=== PATIENT | male | born 1985 | race African-American/Black ===

== ENCOUNTER 2018-10-13 22:45 | Emergency (ER) | payer BC, OTHER ==
[2018-10-13 22:51] VITALS: BP 130/64
[2018-10-13] MEDS ORDERED: MORPHINE SULFATE 2 MG/ML SYRINGE IVP STA (23:11)
[2018-10-13] MEDS ORDERED: ASPIRIN 81 MG PO STA (23:11)
[2018-10-13 23:36] LABS: Basophils % (A) 0 %; Eosinophils # (A) 0.2 k/uL (0-0.7); Eosinophils % (A) 3 %; HCT 44.8 % (39.0-53.0); HGB 14.3 gm/dL (13.0-17.5); Lymphocytes # (A) 2.5 k/uL (1.0-4.8); Lymphocytes % (A) 34 %; MCH 27.4 pg (25.0-35.0); MCHC 31.9 g/dL (31.0-37.0); Mean Platelet Volume 8.1; Monocytes # (A) 0.4 k/uL (0-1.0); Monocytes % (A) 6 %; Neutrophils # (A) 4.1 k/uL (1.3-7.7); Neutrophils % (A) 55 %; Platelet Count 179 k/uL (150-450); RBC 5.21 m/uL (4.30-5.90); RDW 13.9 % (11.5-15.5); WBC 7.4 k/uL (3.8-10.6)
[2018-10-13 23:40] LABS: African American GFR (CKD) >90 (>60 ml/min/1.73 sqM); Albumin 4.4 g/dL (3.5-5.0); Anion Gap 8 mmol/L; Calcium 9.6 mg/dL (8.4-10.2); Carbon Dioxide 26 mmol/L (22-30); Chloride 105 mmol/L (98-107); Glucose 104 mg/dL (74-99); Non-African American GFR(CKD) >90 (>60 ml/min/1.73 sqM); Sodium 139 mmol/L (137-145); Total Bilirubin 0.5 mg/dL (0.2-1.3)
--- NOTE | 2018-10-13 23:41 | XR ---
History: ITS.REASON XR Reason: Chest Pain Exam: XR CXR 2 VIEWS Comparison: None available FINDINGS: The lungs are clear. The cardiac and mediastinal contours appear within limits. The visualized osseous structures appear within limits. IMPRESSION: No evidence of acute disease.
[2018-10-13 23:42] LABS: ALT 47 U/L (21-72); AST 35 U/L (17-59); Alkaline Phosphatase 87 U/L (38-126); Blood Urea Nitrogen 13 mg/dL (9-20)
[2018-10-13 23:51] LABS: D-Dimer 0.18 mg/L FEU (<0.60); INR 0.9 (<1.2); Partial Thromboplastin Time 25.2 sec (22.0-30.0); Prothrombin Time 9.7 sec (9.0-12.0)
[2018-10-14] MEDS ORDERED: SIMETHICONE 80 MG CHEWABLE PO STA (01:50)
--- NOTE | 2018-10-14 01:55 | ED ---
Chest Pain HPI - General Chief Complaint: Chest Pain Stated Complaint: Chest Pain Time Seen by Provider: 10/13/18 22:58 Source: patient Mode of arrival: ambulatory Limitations: no limitations - History of Present Illness Initial Comments: Patient is a 33-year-old male who presents to the emergency room with reported chest pain. He reports that symptoms started earlier today. He denies any provoking factors. Describes it as a left-sided chest pain with radiation to his left flank. It is reproducible upon palpation and with movement. States that he does have pain with inspiration. Denies any blunt trauma. No history of similar in the past. He denies a history of DVTs or PEs. No family history of blood clotting disorders. Denies any unilateral calf pain or swelling. No recent travel or prolonged immobility. He denies associated nausea, vomiting or diaphoresis. Does admit to slight abdominal distention. He did not take any medications at home for her symptoms. He denies a family history of cardiac disease. There is no associated symptoms of headache, neck pain, back pain. No tearing sensation to his back. He denies any unilateral numbness or weakness. There are no alleviating, precipitating or modifying factors - Related Data Home Medications Medication Instructions Recorded Confirmed No Known Home Medications 10/13/18 10/13/18 Allergies Allergy/AdvReac Type Severity Reaction Status Date / Time No Known Allergies Allergy Verified 10/13/18 23:30 Review of Systems ROS Statement: Those systems with pertinent positive or pertinent negative responses have been documented in the HPI. ROS Other: All systems not noted in ROS Statement are negative. EKG Findings - EKG Comments: EKG Findings:: EKG demonstrates a normal sinus rhythm with a ventricular rate of 105. FL interval 162. QRS 86. QTC of 420. There are no acute ST segment elevations or depressions concerning for ischemic changes Past Medical History Past Medical History: No Reported History History of Any Multi-Drug Resistant Organisms: None Reported Past Surgical History: No Surgical Hx Reported Past Anesthesia/Blood Transfusion Reactions: No Reported Reaction Past Psychological History: No Psychological Hx Reported Smoking Status: Never smoker Past Alcohol Use History: None Reported Past Drug Use History: None Reported General Exam Limitations: no limitations General appearance: alert, in no apparent distress Head exam: Present: atraumatic, normocephalic, normal inspection Eye exam: Present: normal appearance, PERRL, EOMI. Absent: scleral icterus, conjunctival injection, periorbital swelling ENT exam: Present: normal exam, mucous membranes moist Neck exam: Present: normal inspection. Absent: tenderness, meningismus, lymphadenopathy Respiratory exam: Present: normal lung sounds bilaterally. Absent: respiratory distress, wheezes, rales, rhonchi, stridor Cardiovascular Exam: Present: regular rate, normal rhythm, normal heart sounds. Absent: systolic murmur, diastolic murmur, rubs, gallop, clicks GI/Abdominal exam: Present: soft, normal bowel sounds. Absent: distended, tenderness, guarding, rebound, rigid Extremities exam: Present: normal inspection, full ROM, normal capillary refill. Absent: tenderness, pedal edema, joint swelling, calf tenderness Back exam: Present: normal inspection Neurological exam: Present: alert, oriented X3, CN II-XII intact Psychiatric exam: Present: normal affect, normal mood Skin exam: Present: warm, dry, intact, normal color. Absent: rash Course Vital Signs 10/13/18 10/14/18 22:47 02:10 Temperature 98.1 F 98.6 F Pulse Rate 76 75 Respiratory 18 17 Rate Blood Pressure 130/64 O2 Sat by Pulse 100 Oximetry Chest Pain MDM - MDM Upon arrival the patient was placed into room 2. He is hooked up to continuous pulse ox and cardiac monitoring. A 12-lead EKG was performed and is deomstrates a normal sinus rhythm. IV access had been established. We did provide the patient with 4 mgs of morphine and 324 mgs of chewable aspirin. I did recommend laboratory studies and a chest x-ray. Upon return of the results they are discussed with the patient. The patient does admit to feeling improved at this time. I did discuss the tx options. The patient was given 40 mg of simethicone PO. Did recommend performing a second troponin the patient for which the did agree. The results are then discussed with the patient. At this time the patient will be discharged home and is to follow-up with his primary care physician within 1-2 days. I did recommend that he have a full cardiac evaluation to include Holter monitoring and echo. If the patient has any worsening symptoms he should return to the ED. The patient was in agreement with the treatment plan. patient was discharged home in stable condition Disposition Clinical Impression: Acute chest pain Disposition: HOME SELF-CARE Condition: Stable Instructions (If sedation given, give patient instructions): Chest Pain (ED) Additional Instructions: Please follow-up with your primary care doctor in 1-2 days. Return to the emergency department for any new or worsening symptoms Is patient prescribed a controlled substance at d/c from ED?: No Referrals: None,Stated [Primary Care Provider] - 1-2 days Time of Disposition: 01:57
[2018-10-14 05:49] VITALS: PULSE 75; RESP 17; TEMP 98.6
== END 2018-10-14 02:11 | disposition home or self-care (01) ==
LOC: EC 22:45
DX: R07.1 Chest pain on breathing (principal)
CPT/HCPCS: 96374; 36415 ×2; 93005; 85379; 83880; 80053; 84484 ×2; 85025; 85610; 85730; 71046; 99284; J2270

== ENCOUNTER 2020-03-08 16:33 | Observation (INO) | payer OTHER ==
[2020-03-08] MEDS ORDERED: SODIUM CHLORIDE 0.9% 1,000 ML IV STA ×2 (17:00)
[2020-03-08] MEDS ORDERED: KETOROLAC 15 MG/ML 1 ML VIAL IVP STA (17:21)
[2020-03-08 17:26] LABS: Basophils # (A) 0.1 k/uL (0-0.2); Basophils % (A) 1 %; Eosinophils # (A) 0.3 k/uL (0-0.7); Eosinophils % (A) 4 %; HCT 43.5 % (39.0-53.0); HGB 15.1 gm/dL (13.0-17.5); Lymphocytes # (A) 2.2 k/uL (1.0-4.8); Lymphocytes % (A) 25 %; MCH 29.3 pg (25.0-35.0); MCHC 34.6 g/dL (31.0-37.0); MCV 84.7 fL (80.0-100.0); Mean Platelet Volume 8.5; Monocytes # (A) 0.4 k/uL (0-1.0); Monocytes % (A) 5 %; Neutrophils # (A) 5.5 k/uL (1.3-7.7); Neutrophils % (A) 64 %; Platelet Count 188 k/uL (150-450); RBC 5.14 m/uL (4.30-5.90); RDW 13.3 % (11.5-15.5); WBC 8.6 k/uL (3.8-10.6)
[2020-03-08 17:34] LABS: Appearance,Urine Clear (Clear); Bilirubin,Urine Negative (Negative); Blood,Urine Negative (Negative); Color,Urine Colorless; Glucose,Urine (UA) Negative (Negative); Ketones,Urine Negative (Negative); Leukocyte Esterase,Urine Negative (Negative); Nitrite,Urine Negative (Negative); PH, Urine 5.5 (5.0-8.0); Protein,Urine Negative (Negative); Specific Gravity,Urine 1.004 (1.001-1.035); Urobilinogen,Urine <2.0 mg/dL (<2.0)
[2020-03-08 17:35] LABS: ALT 67 U/L (4-49); AST 34 U/L (17-59); African American GFR (CKD) >90 (>60 ml/min/1.73 sqM); Albumin 4.6 g/dL (3.5-5.0); Alkaline Phosphatase 107 U/L (38-126); Amylase 60 U/L (30-110); Anion Gap 6 mmol/L; Blood Urea Nitrogen 13 mg/dL (9-20); Calcium 9.7 mg/dL (8.4-10.2); Carbon Dioxide 28 mmol/L (22-30); Chloride 102 mmol/L (98-107); Glucose 91 mg/dL (74-99); Lipase 63 U/L (23-300); Non-African American GFR(CKD) >90 (>60 ml/min/1.73 sqM); Potassium 4.3 mmol/L (3.5-5.1); Sodium 136 mmol/L (137-145); Total Bilirubin 0.6 mg/dL (0.2-1.3); Total Protein 8.7 g/dL (6.3-8.2)
--- NOTE | 2020-03-08 17:44 | XR ---
EXAMINATION TYPE: XR KUB DATE OF EXAM: 03/08/2020 5:40 PM CLINICAL HISTORY: Left-sided abdominal pain. TECHNIQUE: Two Upright KUB images of the abdomen are obtained. COMPARISON: None. FINDINGS: Scattered gas is seen in non-distended stomach bubble and small bowel loops. Few scattered air-fluid levels in left mid small bowel loops. Gas and fecal material is seen in non-distended colon along the periphery. There is no visceromegaly, pneumoperitoneum, or abnormal calcification apprecia shelly. The lung bases are clear and the osseous structures are intact. IMPRESSION: Overall nonspecific but favor nonobstructive bowel gas pattern.
--- NOTE | 2020-03-08 18:29 | ED ---
Abdominal Pain HPI - General Chief Complaint: Abdominal Pain Stated Complaint: ABD pain Time Seen by Provider: 03/08/20 16:56 Source: patient, RN notes reviewed, old records reviewed Mode of arrival: ambulatory Limitations: no limitations - History of Present Illness Initial Comments: 4-year-old male presents the ER today for bilateral lower abdominal pain and cramping and bloating, with symptoms for the past 6 days. See normal bowel movement yesterday. Denies hematochezia or melena. Denies any vomiting. It is his abdomen feels full and has some left and right lower quadrant tenderness. She denies any fevers. Denies change in urination. - Related Data Home Medications Medication Instructions Recorded Confirmed No Known Home Medications 10/13/18 10/13/18 Allergies Allergy/AdvReac Type Severity Reaction Status Date / Time No Known Allergies Allergy Verified 03/08/20 16:46 Review of Systems ROS Statement: Those systems with pertinent positive or pertinent negative responses have been documented in the HPI. ROS Other: All systems not noted in ROS Statement are negative. Past Medical History Past Medical History: No Reported History History of Any Multi-Drug Resistant Organisms: None Reported Past Surgical History: No Surgical Hx Reported Past Anesthesia/Blood Transfusion Reactions: No Reported Reaction Past Psychological History: No Psychological Hx Reported Smoking Status: Never smoker Past Alcohol Use History: None Reported Past Drug Use History: None Reported General Exam - General Exam Comments Initial Comments: 34-year-old female. No distress. Limitations: no limitations General appearance: alert, in no apparent distress Head exam: Present: atraumatic, normocephalic, normal inspection Eye exam: Present: normal appearance, PERRL, EOMI. Absent: scleral icterus, conjunctival injection, periorbital swelling ENT exam: Present: normal exam, mucous membranes moist Neck exam: Present: normal inspection. Absent: tenderness, meningismus, lymph adenopathy Respiratory exam: Present: normal lung sounds bilaterally. Absent: respiratory distress, wheezes, rales, rhonchi, stridor Cardiovascular Exam: Present: regular rate, normal rhythm, normal heart sounds. Absent: systolic murmur, diastolic murmur, rubs, gallop, clicks GI/Abdominal exam: Present: soft, tenderness (Left lower quadrant tenderness), normal bowel sounds. Absent: distended, guarding, rebound, rigid Extremities exam: Present: normal inspection, full ROM, normal capillary refill. Absent: tenderness, pedal edema, joint swelling, calf tenderness Back exam: Present: normal inspection Neurological exam: Present: alert, oriented X3, CN II-XII intact Psychiatric exam: Present: normal affect, normal mood Skin exam: Present: warm, dry, intact, normal color. Absent: rash Course Vital Signs 03/08/20 03/08/20 16:42 18:58 Temperature 98.6 F 98.8 F Pulse Rate 88 86 Respiratory 16 18 Rate Blood Pressure 130/81 121/73 O2 Sat by Pulse 99 99 Oximetry Medical Decision Making - Medical Decision Making 34-year-old male generally healthy presents with 6 days of lower abdominal pain and cramping and bloating. Patient reports he's had no recorded fevers. Labs are reviewed and white blood cell count of 8.6. On evaluation have significant left lower quadrant and midabdominal tenderness. Patient had a CAT scan reviewed which showed evidence of moderate to severe appendicitis with dilation of 21 mm. Patient was informed of these findings. I did start the Patient on IV antibiotics and discussed the case with been seen yet. He will be admitted at this time for IV antibiotics for possible surgery in the morning. Patient mother clear liquid diet until midnight and after that remaining nothing by mouth. - Lab Data Result diagrams: 03/08/20 17:18 03/08/20 17:18 Lab Results 03/08/20 03/08/20 03/08/20 Range/Units 17:18 17:18 17:18 WBC 8.6 (3.8-10.6) k/uL RBC 5.14 (4.30-5.90) m/uL Hgb 15.1 (13.0-17.5) gm/dL Hct 43.5 (39.0-53.0) % MCV 84.7 (80.0-100.0) fL MCH 29.3 (25.0-35.0) pg MCHC 34.6 (31.0-37.0) g/dL RDW 13.3 (11.5-15.5) % Plt Count 188 (150-450) k/uL MPV 8.5 Neutrophils % 64 % Lymphocytes % 25 % Monocytes % 5 % Eosinophils % 4 % Basophils % 1 % Neutrophils # 5.5 (1.3-7.7) k/uL Lymphocytes # 2.2 (1.0-4.8) k/uL Monocytes # 0.4 (0-1.0) k/uL Eosinophils # 0.3 (0-0.7) k/uL Basophils # 0.1 (0-0.2) k/uL Sodium 136 L (137-145) mmol/L Potassium 4.3 (3.5-5.1) mmol/L Chloride 102 (98-107) mmol/L Carbon Dioxide 28 (22-30) mmol/L Anion Gap 6 mmol/L BUN 13 (9-20) mg/dL Creatinine 0.96 (0.66-1.25) mg/dL Est GFR (CKD-EPI)AfAm >90 (>60 ml/min/1.73 sqM) Est GFR (CKD-EPI)NonAf >90 (>60 ml/min/1.73 sqM) Glucose 91 (74-99) mg/dL Calcium 9.7 (8.4-10.2) mg/dL Total Bilirubin 0.6 (0.2-1.3) mg/dL AST 34 (17-59) U/L ALT 67 H (4-49) U/L Alkaline Phosphatase 107 (38-126) U/L Total Protein 8.7 H (6.3-8.2) g/dL Albumin 4.6 (3.5-5.0) g/dL Amylase 60 (30-110) U/L Lipase 63 (23-300) U/L Urine Color Colorless Urine Appearance Clear (Clear) Urine pH 5.5 (5.0-8.0) Ur Specific [place] 1.004 (1.001-1.035) Urine Protein Negative (Negative) Urine Glucose (UA) Negative (Negative) Urine Ketones Negative (Negative) Urine Blood Negative (Negative) Urine Nitrite Negative (Negative) Urine Bilirubin Negative (Negative) Urine Urobilinogen <2.0 (<2.0) mg/dL Ur Leukocyte Esterase Negative (Negative) - Radiology Data Radiology results: report reviewed Overall nonspecific fever not start a bowel gas pattern. CT findings are consistent with fairly severe uncomplicated acute appendicitis. The appendix is abnormal setting inferiorly from the cecum. Styloid and more to the tip at 21 mm with abnormal mucosal enhancement severe wall thickening. Moderate to severe ill-defined fluid and fat straining. Appendix is more midline in the presacral region that axial image 62. No free air. This is read by Dr. Shah. Disposition Clinical Impression: Appendicitis Disposition: ADMITTED IP TO THIS HOSP Condition: Good Additional Instructions: Please use medication as discussed. Please follow up with family doctor if symptoms have not improved over the next two days. Please return to the emergency room if your symptoms increase or worsen or for any other concerns. Is patient prescribed a controlled substance at d/c from ED?: No Referrals: Louise Noriega, PAC [Primary Care Provider] - 1-2 days Time of Disposition: 19:51
--- NOTE | 2020-03-08 19:29 | CT ---
EXAMINATION TYPE: CT abdomen pelvis w con DATE OF EXAM: 03/08/2020 COMPARISON: None. Abdominal x-ray earlier today HISTORY: Generalized abdominal pain x6 days. CT DLP: 901.8 mGycm, Automated Exposure Control for Dose Reduction was Utilized. CONTRAST: CT scan of the abdomen and pelvis is performed without oral but with IV Contrast, patient injected wi th 100ml mL of Isovue 300. FINDINGS: LUNG BASES: No significant abnormality is appreciated. LIVER/GB: No significant abnormality is appreciated. PANCREAS: No significant abnormality is seen. SPLEEN: No significant abnormality is seen. ADRENALS: No significant abnormality is seen. KIDNEYS: Symmetric cortical medullary uptake and excretion without concerning renal mass or hydroneph rosis seen bilaterally. BOWEL: Suboptimal evaluation without enteric contrast. No suspicious small or large bowel dilatation is present. There is fecal prominent terminal ileum. Findings consistent with delayed passage of flori sted material 2 colonic level. Appendix is abnormal extending inferiorly from the cecum. It is dilate d more towards the tip at 21 mm coronal image 43 with abnormal mucosal enhancement and severe wall th ickening. There is moderate to severe ill-defined fluid and fat stranding. Appendix is more midline i n the presacral region axial image 62. No free air. PROSTATE/SEMINAL VESICLES: Prostate gland slightly prominent for patient's age measures upper limits of normal in size. LYMPH NODES: No greater than 1cm abdominal or pelvic lymph nodes are appreciated. OSSEOUS STRUCTURES: No significant abnormality is seen. OTHER: No significant additional abnormality is seen. IMPRESSION: CT findings consistent with a fairly severe but uncomplicated acute appendicitis as detai led above. Critical results communicated to ordering emergency care physician benefits assistant via telephone at time of dictation.
[2020-03-08] MEDS ORDERED: MORPHINE SULFATE 4 MG/ML SYRINGE IVP PRN (19:38)
[2020-03-08] MEDS ORDERED: IBUPROFEN 400 MG TAB PO PRN (19:52)
[2020-03-08] MEDS ORDERED: ACETAMINOPHEN TAB 325 MG TAB PO PRN (19:52)
[2020-03-08] MEDS ORDERED: LORazepam 2 MG/ML INJ IV PRN (19:52)
[2020-03-08] MEDS ORDERED: MORPHINE SULFATE 4 MG/ML SYRINGE IV PRN (19:52)
[2020-03-08] MEDS ORDERED: NALOXONE 0.4 MG/ML 1 ML VIAL IV PRN (19:52)
[2020-03-08] MEDS ORDERED: PIPERACILLIN-TAZOBACTAM 3.375 GM in SODIUM CHLORIDE 0.9% 100 ML IVPB STA (19:55)
[2020-03-08] MEDS: SODIUM CHLORIDE 0.9% 1,000 ML IV SCH (23:56)
[2020-03-09] MEDS: KETOROLAC 15 MG/ML 1 ML VIAL IVP PRN ×3 (01:45→17:03)
[2020-03-09] MEDS: PIPERACILLIN-TAZOBACTAM 3.375 GM in SODIUM CHLORIDE 0.9% 100 ML IVPB SCH ×3 (05:15→19:22)
[2020-03-09] MEDS: SODIUM CHLORIDE 0.9% 1,000 ML IV SCH ×2 (05:20→16:26)
[2020-03-09 07:18] LABS: Glucose,Whole Blood 98 mg/dL (75-99)
[2020-03-09] MEDS: PANTOPRAZOLE 40 MG/10 ML VIAL IV SCH (08:28)
[2020-03-09 08:54] LABS: Basophils % (A) 0 %; Eosinophils # (A) 0.2 k/uL (0-0.7); Eosinophils % (A) 3 %; HGB 15.1 gm/dL (13.0-17.5); Lymphocytes # (A) 1.4 k/uL (1.0-4.8); Lymphocytes % (A) 22 %; MCH 28.7 pg (25.0-35.0); MCHC 33.4 g/dL (31.0-37.0); MCV 85.8 fL (80.0-100.0); Mean Platelet Volume 8.3; Monocytes # (A) 0.4 k/uL (0-1.0); Monocytes % (A) 5 %; Neutrophils # (A) 4.4 k/uL (1.3-7.7); Neutrophils % (A) 67 %; Platelet Count 204 k/uL (150-450); RBC 5.25 m/uL (4.30-5.90); RDW 13.5 % (11.5-15.5); WBC 6.5 k/uL (3.8-10.6)
[2020-03-09 09:04] LABS: ALT 58 U/L (4-49); AST 31 U/L (17-59); African American GFR (CKD) >90 (>60 ml/min/1.73 sqM); Albumin 4.2 g/dL (3.5-5.0); Albumin/Globulin Ratio 1.1; Alkaline Phosphatase 95 U/L (38-126); Anion Gap 6 mmol/L; Blood Urea Nitrogen 11 mg/dL (9-20); Calcium 9.3 mg/dL (8.4-10.2); Carbon Dioxide 28 mmol/L (22-30); Chloride 104 mmol/L (98-107); Globulin 3.9 g/dL; Glucose 101 mg/dL (74-99); Non-African American GFR(CKD) >90 (>60 ml/min/1.73 sqM); Potassium 4.4 mmol/L (3.5-5.1); Sodium 138 mmol/L (137-145); Total Bilirubin 1.2 mg/dL (0.2-1.3); Total Protein 8.1 g/dL (6.3-8.2)
--- NOTE | 2020-03-09 09:51 | P.GSHP ---
History of Present Illness H&P Date: 03/09/20 CHIEF COMPLAINT: Abdominal pain HISTORY OF PRESENT ILLNESS: This is a 34-year-old male with no snacking past medical history. He presents to the emergency room with complaints of abdominal pain in the lower mid to left lower quadrant abdomen for the past 6 days. Patient reports that symptoms initially started as bloating and stomach cramping. He's had decrease in appetite. He denies any fever chills or sweats. Denies any nausea or vomiting. He's afebrile. His computed tomography scan of the abdomen and pelvis consistent with fairly severe but uncomplicated acute appendicitis. Appendix is abnormal extending inferiorly from the cecum. It is dilated more towards the tip with abnormal mucosal enhancement and severe wall thickening. There is moderate to severe ill-defined fluid and fat stranding. The patent thinks is more midline in the presacral region. PAST MEDICAL HISTORY: See list. PAST SURGICAL HISTORY: See list. MEDICATIONS: See list. ALLERGIES: See list. SOCIAL HISTORY: No illicit drug use. REVIEW OF SYSTEMS: CONSTITUTIONAL: Denies fever or chills. HEENT: Denies blurred vision, vision changes, or eye pain. Denies hemoptysis CARDIOVASCULAR: Denies chest pain or pressure. RESPIRATORY: No shortness of breath. GASTROINTESTINAL: See HPI for pertinent findings HEMATOLOGIC: Denies bleeding disorders. GENITOURINARY: Denies any blood in urine or increased urinary frequency. SKIN: Denies pruitis. Denies rash. PHYSICAL EXAM: VITAL SIGNS: Reviewed GENERAL: Well-developed in no acute distress. HEENT: No sclera icterus. Extraocular movements grossly intact. Moist buccal mucosa. Head is atraumatic, normocephalic. No nasal drainage. ABDOMEN: Soft. Nondistended. Tender with palpation of the lower mid and left quadrant lower quadrant of abdomen NEUROLOGIC: Alert and oriented. Cranial nerves II through XII grossly intact. LABORATORY DATA: WBC 8.6 ALT 58 lipase 63 COVID negative UA negative IMAGING: computed tomography scan of the abdomen and pelvis consistent with fairly severe but uncomplicated acute appendicitis. Appendix is abnormal extending inferiorly from the cecum. It is dilated more towards the tip with abnormal mucosal enhancement and severe wall thickening. There is moderate to severe ill-defined fluid and fat stranding. The patent thinks is more midline in the presacral region. ASSESSMENT: 1. Acute appendicitis PLAN: -Patient is scheduled for laparoscopic appendectomy today with Dr. Hare -Keep patient nothing by mouth -Continue with IV fluids -Continue IV antibiotics Physician Merchant Seaman note has been reviewed by physician. Signing provider agrees with the documented findings, assessment, and plan of care. Past Medical History Past Medical History: No Reported History History of Any Multi-Drug Resistant Organisms: None Reported Past Surgical History: No Surgical Hx Reported Past Anesthesia/Blood Transfusion Reactions: No Reported Reaction Past Psychological History: No Psychological Hx Reported Smoking Status: Never smoker Past Alcohol Use History: None Reported Past Drug Use History: None Reported Medications and Allergies Home Medications Medication Instructions Recorded Confirmed Type L.acidoph,Paracasei, B.lactis 1 tab PO DAILY 03/08/20 03/08/20 History [Probiotic] Multivitamins, Thera [Multivitamin 1 tab PO DAILY 03/08/20 03/08/20 History (formulary)] Potassium Gluconate 99 mg PO DAILY 03/08/20 03/08/20 History Simethicone [Gas-X] 125 mcg PO DAILY PRN 03/08/20 03/08/20 History Allergies Allergy/AdvReac Type Severity Reaction Status Date / Time No Known Allergies Allergy Verified 03/08/20 21:11 Surgical - Exam Vital Signs Temp Pulse Resp BP Pulse Ox 98.6 F 88 16 130/81 99 03/08/20 16:42 03/08/20 16:42 03/08/20 16:42 03/08/20 16:42 03/08/20 16:42 Results - Labs 03/09/20 08:32 03/09/20 08:32 Abnormal Lab Results - Last 24 Hours (Table) 03/08/20 03/09/20 Range/Units 17:18 08:32 Sodium 136 L (137-145) mmol/L Glucose 101 H (74-99) mg/dL ALT 67 H 58 H (4-49) U/L Total Protein 8.7 H (6.3-8.2) g/dL Diabetes panel 03/08/20 03/09/20 Range/Units 17:18 08:32 Sodium 136 L 138 (137-145) mmol/L Potassium 4.3 4.4 (3.5-5.1) mmol/L Chloride 102 104 (98-107) mmol/L Carbon Dioxide 28 28 (22-30) mmol/L BUN 13 11 (9-20) mg/dL Creatinine 0.96 1.04 (0.66-1.25) mg/dL Glucose 91 101 H (74-99) mg/dL Calcium 9.7 9.3 (8.4-10.2) mg/dL AST 34 31 (17-59) U/L ALT 67 H 58 H (4-49) U/L Alkaline Phosphatase 107 95 (38-126) U/L Total Protein 8.7 H 8.1 (6.3-8.2) g/dL Albumin 4.6 4.2 (3.5-5.0) g/dL Calcium panel 03/08/20 03/09/20 Range/Units 17:18 08:32 Calcium 9.7 9.3 (8.4-10.2) mg/dL Albumin 4.6 4.2 (3.5-5.0) g/dL Pituitary panel 03/08/20 03/09/20 Range/Units 17:18 08:32 Sodium 136 L 138 (137-145) mmol/L Potassium 4.3 4.4 (3.5-5.1) mmol/L Chloride 102 104 (98-107) mmol/L Carbon Dioxide 28 28 (22-30) mmol/L BUN 13 11 (9-20) mg/dL Creatinine 0.96 1.04 (0.66-1.25) mg/dL Glucose 91 101 H (74-99) mg/dL Calcium 9.7 9.3 (8.4-10.2) mg/dL Adrenal panel 03/08/20 03/09/20 Range/Units 17:18 08:32 Sodium 136 L 138 (137-145) mmol/L Potassium 4.3 4.4 (3.5-5.1) mmol/L Chloride 102 104 (98-107) mmol/L Carbon Dioxide 28 28 (22-30) mmol/L BUN 13 11 (9-20) mg/dL Creatinine 0.96 1.04 (0.66-1.25) mg/dL Glucose 91 101 H (74-99) mg/dL Calcium 9.7 9.3 (8.4-10.2) mg/dL Total Bilirubin 0.6 1.2 (0.2-1.3) mg/dL AST 34 31 (17-59) U/L ALT 67 H 58 H (4-49) U/L Alkaline Phosphatase 107 95 (38-126) U/L Total Protein 8.7 H 8.1 (6.3-8.2) g/dL Albumin 4.6 4.2 (3.5-5.0) g/dL
[2020-03-09 11:09] LABS: Glucose,Whole Blood 94 mg/dL (75-99)
[2020-03-09] MEDS ORDERED: NEOSTIGMINE 1 MG/ML 10 ML VIAL ONE (20:39)
[2020-03-09] MEDS ORDERED: LIDOCAINE 1% INJ 10MG/ML (20 ML MDV) ONE (20:39)
[2020-03-09] MEDS ORDERED: GLYCOPYRROLATE 0.2 MG/ML 2 ML VIAL ONE (20:39)
[2020-03-09] MEDS ORDERED: fentaNYL (PF) 50 MCG/ML 2 ML AMP ONE (20:39)
[2020-03-09] MEDS ORDERED: ONDANSETRON 4 MG/2 ML VIAL ONE (20:39)
[2020-03-09] MEDS ORDERED: SUCCINYLCHOLINE CHLORIDE 100 MG/5 ML SYR IV ONE (20:39)
[2020-03-09] MEDS ORDERED: PROPOFOL 10 MG/ML 20 ML VIAL IV ONE (20:39)
[2020-03-09] MEDS ORDERED: ROCURONIUM 10 MG/ML (10 ML VIAL) IV ONE (20:39)
[2020-03-09] MEDS ORDERED: MIDAZOLAM 2 MG/2 ML VIAL ONE (20:39)
[2020-03-09] MEDS ORDERED: DEXAMETHASONE SOD PHOSPHATE 10 MG/ML 1 ML VIAL ONE (20:39)
[2020-03-09] MEDS ORDERED: SODIUM CHLORIDE 0.9% 1,000 ML IV ONE ×2 (20:49→21:15)
[2020-03-09] MEDS ORDERED: BUPIVACAINE-EPI 0.5%-1:200,000 10 ML VIAL SQ ONE (21:18)
[2020-03-09 21:57] VITALS: RESP 16
--- NOTE | 2020-03-10 00:29 | CONS ---
CONSULTATION DATE OF SERVICE: 03/09/2020. REASON FOR CONSULTATION: Appendicitis. HISTORY OF PRESENT ILLNESS: The patient is a 34-year-old male who presented to the hospital with chief complaint of abdominal pain and this patient's symptoms started about a week ago on a Saturday. Patient initially thought it was more of sudden abdominal bloating and findings did not go away, but did not improve. The patient's pain has been mostly in periumbilical area to begin with. Subsequently, had some pain to mostly the left lower abdominal area. The patient's current pain appears to more of a sharp type some dull aching with intensity about 7/10 and no radiation. Denies having any nausea, vomiting, or any diarrhea. With these symptoms, the patient presented to hospital. On arrival to the ER, the patient has been afebrile. The patient did have a normal white count. Liver enzymes, ALT mildly elevated. Urine was negative. Hooper PCR was negative. The patient did have an abdomen and pelvis CT with concern for appendicitis and abnormal mucosa enhancement and severe wall thickening and moderate to severe ill-defined fluid and fat stranding. The patient was admitted to the hospital. He was started on Zosyn. The patient had been scheduled for surgery this afternoon. It apparently has been completed. The OR report is currently pending. Infectious Disease was consulted for further management for antibiotic therapy. REVIEW OF SYSTEMS: Positive points have been mentioned in HPI. Rest of systems are negative. PAST MEDICAL HISTORY: No major illnesses. PAST SURGICAL HISTORY: Surgery for SOCIAL HISTORY: No history of smoking, drinking or drug use. FAMILY HISTORY: No pertinent findings noticed. ALLERGIES: No known drug allergies. MEDICATIONS: Medications include the patient is currently on Tylenol, Motrin, Toradol, Ativan, morphine sulfate, Narcan, Protonix, Zosyn and IV fluid. PHYSICAL EXAMINATION: Blood pressure 121/64 with a pulse of 101, temperature 98.1. He is 98% on room air. General description is a middle-aged male lying in bed in no distress. No tachypnea or accessory muscle of respiration use. HEENT: Examination shows no pallor or scleral icterus. Oral mucous membrane is dry. No pharyngeal erythema or thrush. NECK: Trachea central. No thyromegaly. LUNGS: Unlabored breathing, clear to auscultation anteriorly. No wheeze or crackle. HEART: S1, S2. Regular rate and rhythm. ABDOMEN: Soft, mildly distended and tender in the lower abdominal area. Some guarding and rigidity. EXTREMITIES: No edema of feet. SKIN EXAMINATION: No rash or mass palpable. NEUROLOGIC: The patient is awake, alert, oriented x3. Mood and affect normal. LABS: Hemoglobin is 15.1, white count 6.5, BUN of 11, creatinine 1.04. CT report as mentioned above. DIAGNOSTIC IMPRESSION: Patient admitted to the hospital with abdominal pain in this patient has been diagnosed with severe appendicitis with some ill-defined fluid but no definite evidence of any perforated appendicitis or an abscess. The patient did have surgery, operative report is pending to determine the extent of this evidence of any abscess that needed to be drained. Will need to cover for the enteric gram-negative both aerobes and anaerobes. PLAN: 1. Zosyn 3.375 grams q.8 hours should be adequate antibiotic coverage. 2. Gentle IV fluid. 3. We will follow on his clinical condition and further adjust medication if needed. Thank you for this consultation. Will follow this patient along with you. MMODL / IJN: [id number] /
[2020-03-10] MEDS: SODIUM CHLORIDE 0.9% 1,000 ML IV SCH (00:30)
[2020-03-10] MEDS: PIPERACILLIN-TAZOBACTAM 3.375 GM in SODIUM CHLORIDE 0.9% 100 ML IVPB SCH ×2 (03:48→14:52)
[2020-03-10] MEDS: KETOROLAC 15 MG/ML 1 ML VIAL IVP PRN (03:58)
[2020-03-10] MEDS: PANTOPRAZOLE 40 MG/10 ML VIAL IV SCH (07:19)
[2020-03-10 09:34] LABS: Basophils % (A) 0 %; Eosinophils % (A) 0 %; HCT 43.7 % (39.0-53.0); HGB 14.2 gm/dL (13.0-17.5); Lymphocytes # (A) 0.8 k/uL (1.0-4.8); Lymphocytes % (A) 9 %; MCH 27.6 pg (25.0-35.0); MCHC 32.5 g/dL (31.0-37.0); MCV 84.8 fL (80.0-100.0); Mean Platelet Volume 8.7; Monocytes # (A) 0.3 k/uL (0-1.0); Monocytes % (A) 3 %; Neutrophils # (A) 7.4 k/uL (1.3-7.7); Neutrophils % (A) 87 %; Platelet Count 221 k/uL (150-450); RBC 5.15 m/uL (4.30-5.90); RDW 13.6 % (11.5-15.5); WBC 8.5 k/uL (3.8-10.6)
[2020-03-10 09:53] LABS: African American GFR (CKD) >90 (>60 ml/min/1.73 sqM); Anion Gap 9 mmol/L; Blood Urea Nitrogen 13 mg/dL (9-20); Calcium 8.9 mg/dL (8.4-10.2); Carbon Dioxide 24 mmol/L (22-30); Chloride 103 mmol/L (98-107); Glucose 99 mg/dL (74-99); Non-African American GFR(CKD) >90 (>60 ml/min/1.73 sqM); Potassium 4.8 mmol/L (3.5-5.1); Sodium 136 mmol/L (137-145)
--- NOTE | 2020-03-10 14:28 | P.DS ---
Providers Date of admission: 03/08/20 20:24 Expected date of discharge: 03/10/20 Attending physician: Brenden Hare Consults: 03/09/20 12:40 Consult Physician Routine Consulting Provider: Ericka Santoro Consult Reason/Comments: appendicitis Do you want consulting provider notified?: Yes Primary care physician: Louise Noriega Hospital Course: Discharge diagnosis 1. Acute appendicitis status post laparoscopic appendectomy Hospital course This is a 34-year-old male with no snacking past medical history. He presents to the emergency room with complaints of abdominal pain in the lower mid to left lower quadrant abdomen for the past 6 days. Patient reports that symptoms initially started as bloating and stomach cramping. He's had decrease in appetite. He denies any fever chills or sweats. Denies any nausea or vomiting. He's afebrile. His computed tomography scan of the abdomen and pelvis consistent with fairly severe but uncomplicated acute appendicitis. Appendix is abnormal extending inferiorly from the cecum. It is dilated more towards the tip with abnormal mucosal enhancement and severe wall thickening. There is moderate to severe ill-defined fluid and fat stranding. The patent thinks is more midline in the presacral region. Patient is status post laparoscopic appendectomy for acute appendicitis. He tolerated surgery well. He is tolerating diet. He's afebrile. He is passing gas. Pain is controlled. He'll be discharged home with Augmentin for 7 more days per infectious disease recommendations. Patient is stable for discharge. Please refer to chart for any further details. Physician Architectural Designer note has been reviewed by physician. Signing provider agrees with the documented findings, assessment, and plan of care. Patient Condition at Discharge: Stable Plan - Discharge Summary Discharge Rx Participant: No New Discharge Prescriptions: New Amoxic-Pot Clav 875-125Mg [Augmentin 875-125] 1 tab PO Q12HR 7 Days #14 tab Docusate [Colace] 100 mg PO BID #30 capsule Hydrocodone/Acetaminophen [[place] 5-325] 1 tab PO Q6HR PRN #10 tab PRN Reason: Pain Continue Potassium Gluconate 99 mg PO DAILY Multivitamins, Thera [Multivitamin (formulary)] 1 tab PO DAILY L.acidoph,Paracasei, B.lactis [Probiotic] 1 tab PO DAILY Simethicone [Gas-X] 125 mcg PO DAILY PRN PRN Reason: Gi Upset Discharge Medication List L.acidoph,Paracasei, B.lactis [Probiotic] 1 tab PO DAILY 03/08/20 [History] Multivitamins, Thera [Multivitamin (formulary)] 1 tab PO DAILY 03/08/20 [History] Potassium Gluconate 99 mg PO DAILY 03/08/20 [History] Simethicone [Gas-X] 125 mcg PO DAILY PRN 03/08/20 [History] Amoxic-Pot Clav 875-125Mg [Augmentin 875-125] 1 tab PO Q12HR 7 Days #14 tab 03/10/20 [Rx] Docusate [Colace] 100 mg PO BID #30 capsule 03/10/20 [Rx] Hydrocodone/Acetaminophen [[place] 5-325] 1 tab PO Q6HR PRN #10 tab 03/10/20 [Rx] Follow up Appointment(s)/Referral(s): Louise Noriega PAC [Primary Care Provider] - 1-2 days Brenden Hare MD [STAFF PHYSICIAN] - 10 Days Activity/Diet/Wound Care/Special Instructions: No driving while taking [place] No lifting over 10 pounds You may shower. No soaking or tub baths for 2 weeks Very light activity until you are reevaluated at your follow up appointment with your surgeon Advance diet as tolerated Discharge Disposition: HOME SELF-CARE
[2020-03-10 14:54] VITALS: BP 155/78; PULSE 80; TEMP 97.9
--- NOTE | 2020-03-10 15:57 | PN ---
PROGRESS NOTE DATE OF SERVICE: 03/10/2020 REASON FOR FOLLOWUP: Acute appendicitis. INTERVAL HISTORY: The patient is currently afebrile. He is status post laparoscopic appendectomy. The patient tolerated the procedure. Pain is currently controlled. No chest pain, shortness of breath or cough. No nausea or vomiting. PHYSICAL EXAMINATION: Blood pressure 155/78 with pulse of 80, temperature 97.9. He is 100% on room air. General description is a middle-aged male lying in bed in no distress. RESPIRATORY SYSTEM: Unlabored breathing. Clear to auscultation anteriorly. HEART: S1, S2. Regular rate and rhythm. ABDOMEN: Soft. No tenderness. LABS: Hemoglobin is 14.2, white count 8.5, BUN of 13, creatinine 0.98. DIAGNOSTIC IMPRESSION AND PLAN: Patient with acute appendicitis patient to finish a short course of oral Augmentin. Discussed with the primary team. Continue with supportive care. MMODL / IJN: [id number] /
--- NOTE | 2020-04-01 12:53 | P.OP ---
Date of Procedure: 03/09/20 Preoperative Diagnosis: Acute appendicitis Postoperative Diagnosis: Acute appendicitis Procedure(s) Performed: Laparoscopic appendectomy Anesthesia: BENY Surgeon: Brenden Hare Estimated Blood Loss (ml): 5 Pathology: other (Appendix) Condition: stable Disposition: PACU Description of Procedure: The patient's placed on the operating table in the supine position. The patient received general anesthesia. The abdomen was prepped and draped in the usual sterile fashion. The skin was anesthetized 1% local Xylocaine at the trocar sites. Using an 11 blade the skin was incised at the umbilicus. The umbilicus was grasped with a [place] clamp and then a Veress needle was placed into the peritoneal cavity. Position of the Veress needle was confirmed with positive drop test. After adequate insufflation a 5 mm trocar was placed into the peritoneal cavity. The abdomen was further insufflated. And then the laparoscope was placed in the peritoneal cavity. Next a 5 mm trocar was placed in the midline suprapubic position. And then a 10 mm trocar was placed in the midline epigastric position. The patient was rotated with the right side up and in Trendelenburg. The appendix was visualized. The appendix appeared to be inflamed. The appendix was grasped and then using the Harmonic scissors the mesoappendix was divided. A PDS Endoloop was then placed around the base of the appendix. And then the appendix was divided using Harmonic scissors. The appendix was placed into an Endo Catch and brought out through the 10 mm trocar site. The abdomen was irrigated. There is no bleeding seen. The trochars withdrawn. The skin was closed interrupted 3-0 Monocryl suture. Dermabond dressing was applied. Patient was sent to recovery room in stable condition.
== END 2020-03-10 16:33 | disposition home or self-care (01) ==
LOC: EC 16:33 → 5NMEDONC 20:24
PROVIDERS: ADMIT Surgery; ATTEND Surgery
DX: K35.80 Unspecified acute appendicitis (principal); Z20.828 Contact with and (suspected) exposure to other viral communicable diseases; Z79.899 Other long term (current) drug therapy
CPT/HCPCS: 44970; 96376; 96375; 96361; 96374; 99285; 36415; 88304; 80053 ×2; 80048; 82150; 83690; 85025 ×3; 81003; 87040; 87635; 74018; 74177; G0378 ×3; J2543 ×3; J2250; J2270; J1100; J2710; J2405; J2001; J3010; J1885 ×3; J0330; J2704; C9113 ×2; Q9967

== ENCOUNTER → 2020-04-13 | Outpatient (CLI) | payer BC ==
--- NOTE | 2020-04-13 13:55 | CONS ---
CONSULTATION DATE OF SERVICE: 04/13/2020 This 34-year-old gentleman has been evaluated in the sleep center for possible obstructive sleep apnea-hypopnea syndrome. HISTORY OF PRESENT ILLNESS/SLEEP-WAKE EVALUATION: Patient usual sleep schedule from 11 p.m., midnight until 6:15 a.m. on working days and from 11 p.m., 1 a.m. until 7:30 a.m. on weekends. He does have problems with falling asleep, has TV set in bedroom, usually sleeps in different positions. While falling asleep, he has restless leg symptoms. During the sleep, according to his and he wakes up from sleep 4 times with 2 episodes of nocturia. In the morning, patient wakes up tired, has difficulties to pay attention, falling asleep during the day, worries about his sleep. [place] Sleepiness Scale increased to 10. Occasionally, patient has hypnagogic hallucinations. No history of sleep paralysis or cataplexy. PAST MEDICAL HISTORY: Positive for hyperlipidemia, increasing level of liver enzymes. PAST SURGICAL HISTORY: Appendectomy recently. MEDICATIONS: None. SOCIAL HISTORY: Negative for smoking or using alcohol. FAMILY HISTORY: Positive for hypertension, hyperlipidemia, arthritis, asthma, sinus problems, headaches, diabetes, acid reflux. REVIEW OF SYSTEMS: Multiple awakenings from sleep, sleepiness during the day, snoring. PHYSICAL EXAM: GENERAL: gentleman without distress. VITAL SIGNS: BP 132/87, HR 72, RR 16, height 5 feet 10-1/4 inches, weight 206.8 pounds, temperature 98.5, oxygen saturation at room air 100%. BMI 29.3. HEENT: PERRLA, EOMI. Oropharynx extremely low position of soft palate. Mallampati 4. NECK: 16 inches in circumference. LUNGS: Clear to percussion and to auscultation. Good air exchange. No wheezing or rhonchi. HEART: S1, S2 regular. No murmurs, gallops, or rubs. ABDOMEN: Soft and nontender. Bowel sounds are present. No organomegaly appreciated. EXTREMITIES: No clubbing or cyanosis. DIESEL FLEET MECHANIC: Awake, alert, and oriented X3. Cranial nerves 2 to 7 intact. There is no fasciculation or atrophy. noted. No focal deficits observed. IMPRESSION: 1. Snoring, multiple awakenings from sleep, low position of soft palate, Mallampati 4, sleepiness during the day, [place] Sleepiness Scale is 10, obstructive sleep apnea- hypopnea syndrome. 2. History of restless legs symptoms. 3. History of possible hypnagogic hallucinations. 4. Hyperlipidemia. 5. Increased liver enzymes. 6. Status post appendectomy. PLAN: 1. Home sleep apnea test for evaluation of patient's breathing during sleep. 2. Following plan after reviewing results of sleep study. 3. Watching weight. 4. Sleep hygiene with regular time in bed for 7-1/2 to 8 hours. 5. No driving if feeling any sleepiness. Thank you very much for allowing me to participate in management of your patient. Sincerely, Inder Sawyer MD, PhD, FAASM Diplomat of [place] [employer] [place] [employer] Launder Operator [facility] [place] MMJULIANL / TAM: [id number] /
== END | disposition home or self-care (01) ==
LOC: SLEEP 11:11
PROVIDERS: ATTEND Internal Medicine
DX: G47.33 Obstructive sleep apnea (adult) (pediatric) (principal); E78.5 Hyperlipidemia, unspecified; Z98.890 Other specified postprocedural states; Z87.39 Personal history of other diseases of the musculoskeletal system and connective tissue
CPT/HCPCS: 99211